=== PATIENT | female | born 1960 | race Caucasian/White ===

== ENCOUNTER 2018-08-26 06:00 | Day surgery (SDC) | payer BC ==
[~2018-08-26] VITALS: Ht 152.4 cm; Wt 134.5 kg
[~2018-08-26 06:00] MED LIST: BUPR100T13 PO; CALC-1038 PO; CARV6.25 PO; CYAN1TAB44 PO; DOCU240C25 PO; ESOM40CA54 PO; LEVO175T9 PO; LIRA0.6P SQ; METR59LO TP; MULT-1192 PO; OLME1TAB9 PO; OMEG-112 PO; SODIUM CHLORIDE 0.9% 1000ML 1,000 ML IV ONE
[2018-08-26 06:39] VITALS: BP 139/68
[2018-08-26] MEDS ORDERED: CHOL50004 PO (06:39)
[2018-08-26] MEDS ORDERED: PROPOFOL 10 MG/ML 20ML VIAL IV ONE (07:18)
[2018-08-26] MEDS ORDERED: LIDOCAINE HCL-MPF 2% 5ML VIAL ONE (07:18)
[2018-08-26 07:38] VITALS: BP 127/63
[2018-08-26 07:40] VITALS: BP 150/82
[2018-08-26 08:05] VITALS: BP 135/72
== END 2018-08-26 08:12 | disposition home or self-care (01) ==
LOC: ENDO 06:00 → DAH 06:00 → ENDO 08:12
PROVIDERS: ATTEND Internal Medicine Gastroenterology
DX: K29.50 Unspecified chronic gastritis without bleeding (principal); K31.7 Polyp of stomach and duodenum; K44.9 Diaphragmatic hernia without obstruction or gangrene; K31.89 Other diseases of stomach and duodenum; Z68.43 Body mass index [BMI] 50.0-59.9, adult; Z79.899 Other long term (current) drug therapy; I10 Essential (primary) hypertension; F41.9 Anxiety disorder, unspecified; E03.9 Hypothyroidism, unspecified; M19.90 Unspecified osteoarthritis, unspecified site; K21.9 Gastro-esophageal reflux disease without esophagitis; Z98.890 Other specified postprocedural states; Z79.84 Long term (current) use of oral hypoglycemic drugs
CPT/HCPCS: 43239; 43251; 82948; A4606; J2704; J3490; J7030